=== PATIENT | female | born 1960 | race Caucasian/White ===

== ENCOUNTER 2018-09-28 21:56 | Emergency (ER) | payer OTHER ==
[2018-09-28 22:39] LABS: Hematocrit 42 % (35-47); Mean Corpuscular HGB Conc 33 g/dl (31-36); Mean Corpuscular Hemoglobin 30 pg (27-31); Mean Corpuscular Volume 91 fL (80-97); Mean Platelet Volume 8.5 fL (7.4-10.4); Platelet Count 236 10^3/ul (150-450); Red Blood Count 4.62 10^6/ul (4.00-5.40); Red Cell Distribution Width 14 % (10.5-15); White Blood Count 9.8 10^3/ul (3.5-10.8)
[2018-09-28 22:47] LABS: INR 1.02 (0.77-1.02)
[2018-09-28 22:55] LABS: EGFR Non-African American 98.2 (>60)
[2018-09-28 23:04] LABS: ABS Basophils 0 10^3/ul (0-0.2); ABS Eosinophils 2.1 10^3/ul (0-0.6); ABS Lymphocytes 2.3 10^3/ul (1.0-4.8); ABS Monocytes 0.4 10^3/ul (0-0.8); ABS Neutrophils 4.9 10^3/ul (1.5-7.7); ABS Nucleated RBC 0 10^3/ul; Eosinophil % 21.3 %; Lymphocyte % 23.4 %; Nucleated Red Blood Cells % 0.1
[2018-09-28] MEDS ORDERED: NS 0.9% 1000 ML* 1,000 ML IV ONE (23:18)
[2018-09-29] MEDS ORDERED: NS 0.9% 500 ML* 500 ML IV ONE (00:17)
[2018-09-29] MEDS ORDERED: Ondansetron ODT TAB* 4 MG PO ONE (01:32)
--- NOTE | 2018-09-29 02:44 | ED ---
Nausea/Vomiting/Diarrhea HPI - HPI Summary HPI Summary: Patient complains of several episodes of diarrhea 1 week with intermittent nausea and mid abdominal pain. Periods where there is no diarrhea, but worse often after eating. Denies history of travel, blood in stool, recent antibiotics, followed by diarrhea. Patient denies fever, cough, sore throat, CP , SOB, vomiting, change in urine, change in BM, vaginal symptoms. Speech patient states she has attempted [place] without improvement. Denies new supplements, medications, diet. States others have eaten the same food she has eaten. Medical history is none. - History of Current Complaint Chief Complaint: EDNauseaVomitDiarrh Stated Complaint: VOMITING/DIRRHEA Time Seen by Provider: 09/28/18 23:16 Hx Obtained From: Patient Onset/Duration: Gradual Onset Severity Initially: Moderate Severity Currently: Moderate Pain Intensity: 5 Pain Scale Used: 0-10 Numeric Location: Diffuse Character: Cramping Aggravating Factor(s): Food Alleviating Factor(s): Nothing Nausea/Vomiting Presence: Nauseated Diarrhea Presence: Yes Diarrhea Frequency: Every 15-60 minutes Diarrhea Characteristics: Watery - Allergies/Home Medications Allergies/Adverse Reactions: Allergies Allergy/AdvReac Type Severity Reaction Status Date / Time No Known Allergies Allergy Verified 09/28/18 23:39 PMH/Surg Hx/FS Hx/Imm Hx Endocrine/Hematology History: Denies: Hx Anticoagulant Therapy Cardiovascular History: Reports: Other Cardiovascular Problems/Disorders - hx palpitations Denies: Hx Cardiac Arrest History: Denies: Hx Dialysis Neurological History: Reports: Other Neuro Impairments/Disorders - hx dizziness Denies: Hx CVA Psychiatric History: Reports: Other Psychiatric Issues/Disorders - hx insomnia Denies: Hx Autism Infectious Disease History: No Infectious Disease History: Denies: Traveled Outside the [place] in Last 30 Days - Family History Known Family History: Positive: Other - breast cancer - Social History Occupation: Employed Full-time Alcohol Use: Occasionally Substance Use Type: Reports: None Smoking Status (MU): Never Smoked Tobacco Review of Systems Constitutional: Negative Eyes: Negative ENT: Negative Cardiovascular: Negative Respiratory: Negative Positive: Abdominal Pain, Diarrhea, Nausea Genitourinary: Negative Musculoskeletal: Negative Skin: Negative Neurological: Negative Psychological: Normal All Other Systems Reviewed And Are Negative: Yes Physical Exam - Summary Physical Exam Summary: Abdomen nontender to palpation currently. No active diarrhea or vomiting here in the ED. Triage Information Reviewed: Yes Vital Signs On Initial Exam: Initial Vitals Temp Pulse Resp BP Pulse Ox 98.2 F 89 22 142/92 100 09/28/18 21:58 09/28/18 21:58 09/28/18 21:58 09/28/18 21:58 09/28/18 21:58 Vital Signs Reviewed: Yes Appearance: Positive: Well-Appearing Skin: Positive: Warm Head/Face: Positive: Normal Head/Face Inspection Eyes: Positive: Normal ENT: Positive: Normal ENT inspection Neck: Positive: Supple Respiratory/Lung Sounds: Positive: Clear to Auscultation Cardiovascular: Positive: Normal Abdomen Description: Positive: Nontender Musculoskeletal: Positive: Normal Neurological: Positive: Normal Psychiatric: Positive: Normal AVPU Assessment: Alert - [place] Coma Scale Best Eye Response: 4 - Spontaneous Best Motor Response: 6 - Obeys Commands Best Verbal Response: 5 - Oriented Coma Scale Total: 15 Diagnostics - Vital Signs Vital Signs Temp Pulse Resp BP Pulse Ox 09/29/18 02:04 120/67 09/29/18 01:34 124/72 09/29/18 01:04 123/72 09/29/18 00:34 129/73 09/29/18 00:04 113/70 09/28/18 23:39 75 98 09/28/18 23:34 76 131/79 98 09/28/18 21:58 98.2 F 89 22 142/92 100 - Laboratory Lab Results: Lab Results 09/28/18 09/28/18 09/28/18 Range/Units 22:27 22:27 22:27 WBC 9.8 (3.5-10.8) 10^3/ul RBC 4.62 (4.00-5.40) 10^6/ul Hgb 14.0 (12.0-16.0) g/dl Hct 42 (35-47) % MCV 91 (80-97) fL MCH 30 (27-31) pg MCHC 33 (31-36) g/dl RDW 14 (10.5-15) % Plt Count 236 (150-450) 10^3/ul MPV 8.5 (7.4-10.4) fL Neut % (Auto) 50.5 % Lymph % (Auto) 23.4 % [place] % (Auto) 4.5 % Eos % (Auto) 21.3 % Baso % (Auto) 0.3 % Absolute Neuts (auto) 4.9 (1.5-7.7) 10^3/ul Absolute Lymphs (auto) 2.3 (1.0-4.8) 10^3/ul Absolute Monos (auto) 0.4 (0-0.8) 10^3/ul Absolute Eos (auto) 2.1 H (0-0.6) 10^3/ul Absolute Basos (auto) 0 (0-0.2) 10^3/ul Absolute Nucleated RBC 0 10^3/ul Nucleated RBC % 0.1 INR (Anticoag Therapy) 1.02 (0.77-1.02) APTT 30.6 (26.0-36.3) seconds Sodium 139 (135-145) mmol/L Potassium 3.7 (3.5-5.0) mmol/L Chloride 103 (101-111) mmol/L Carbon Dioxide 30 (22-32) mmol/L Anion Gap 6 (2-11) mmol/L BUN 7 (6-24) mg/dL Creatinine 0.62 (0.51-0.95) mg/dL Est GFR ( Amer) 118.8 (>60) Est GFR (Non-Af Amer) 98.2 (>60) BUN/Creatinine Ratio 11.3 (8-20) Glucose 103 H (70-100) mg/dL Lactic Acid (0.5-2.0) mmol/L Calcium 9.6 (8.6-10.3) mg/dL Total Bilirubin 0.30 (0.2-1.0) mg/dL AST 24 (13-39) U/L ALT 23 (7-52) U/L Alkaline Phosphatase 75 (34-104) U/L Troponin I 0.00 (<0.04) ng/mL Total Protein 7.0 (6.4-8.9) g/dL Albumin 4.2 (3.2-5.2) g/dL Globulin 2.8 (2-4) g/dL Albumin/Globulin Ratio 1.5 (1-3) Lipase 17 (11.0-82.0) U/L 11/29/18 Range/Units 22:27 WBC (3.5-10.8) 10^3/ul RBC (4.00-5.40) 10^6/ul Hgb (12.0-16.0) g/dl Hct (35-47) % MCV (80-97) fL MCH (27-31) pg MCHC (31-36) g/dl RDW (10.5-15) % Plt Count (150-450) 10^3/ul MPV (7.4-10.4) fL Neut % (Auto) % Lymph % (Auto) % [place] % (Auto) % Eos % (Auto) % Baso % (Auto) % Absolute Neuts (auto) (1.5-7.7) 10^3/ul Absolute Lymphs (auto) (1.0-4.8) 10^3/ul Absolute Monos (auto) (0-0.8) 10^3/ul Absolute Eos (auto) (0-0.6) 10^3/ul Absolute Basos (auto) (0-0.2) 10^3/ul Absolute Nucleated RBC 10^3/ul Nucleated RBC % INR (Anticoag Therapy) (0.77-1.02) APTT (26.0-36.3) seconds Sodium (135-145) mmol/L Potassium (3.5-5.0) mmol/L Chloride (101-111) mmol/L Carbon Dioxide (22-32) mmol/L Anion Gap (2-11) mmol/L BUN (6-24) mg/dL Creatinine (0.51-0.95) mg/dL Est GFR ( Amer) (>60) Est GFR (Non-Af Amer) (>60) BUN/Creatinine Ratio (8-20) Glucose (70-100) mg/dL Lactic Acid 0.8 (0.5-2.0) mmol/L Calcium (8.6-10.3) mg/dL Total Bilirubin (0.2-1.0) mg/dL AST (13-39) U/L ALT (7-52) U/L Alkaline Phosphatase (34-104) U/L Troponin I (<0.04) ng/mL Total Protein (6.4-8.9) g/dL Albumin (3.2-5.2) g/dL Globulin (2-4) g/dL Albumin/Globulin Ratio (1-3) Lipase (11.0-82.0) U/L Result Diagrams: 09/28/18 22:27 09/28/18 22:27 Lab Statement: Any lab studies that have been ordered have been reviewed, and results considered in the medical decision making process. Naus/Vom/Diarrhea Course/Dx - Course Course Of Treatment: Patient complains of several episodes of diarrhea 1 week with intermittent nausea and mid abdominal pain. Periods where there is no diarrhea, but worse often after eating. Denies history of travel, blood in stool, recent antibiotics, followed by diarrhea. Patient denies fever, cough, sore throat, CP, SOB, vomiting, change in urine, change in BM, vaginal symptoms. Speech patient states she has attempted [place] without improvement. Denies new supplements, medications, diet. States others have eaten the same food she has eaten. Medical history is none. Physical exam: Abdomen nontender to palpation currently. No active diarrhea or vomiting here in the ED. Vital signs within normal limits and stable. Labs unremarkable. No active vomiting or diarrhea here in the ED. Patient hydrated with 1.5 L. Advised to maintain hydration and electrolyte replacement with Gatorade. Advised patient Imodium would be appropriate if necessary, but probably preferable to let diarrhea run its course. Likely stomach virus - Differential Dx/Diagnosis Provider Diagnosis: Nausea vomiting and diarrhea Condition At Discharge: Stable Discharge - Sign-Out/Discharge Documenting (check all that apply): Patient Departure - Discharge Plan Condition: Stable Disposition: HOME Patient Education Materials: Acute Diarrhea (ED) Referrals: Mayra Funes MD [Primary Care Provider] - Billy Kirkpatrick DO [Doctor of Osteopathy] - Additional Instructions: Integument hydration and replace electrolytes with Gatorade. Use Imodium as directed, as needed Follow-up with GI Dr Kirkpatrick if symptoms persist. Return to the ED for any new or worsening symptoms. - Billing Disposition and Condition Condition: STABLE Disposition: Home
[2018-09-29 03:24] VITALS: BP 122/79
== END 2018-09-29 03:25 | disposition home or self-care (01) ==
LOC: ED 21:56
DX: R11.2 Nausea with vomiting, unspecified (principal); R19.7 Diarrhea, unspecified
CPT/HCPCS: 36415; 80053; 83605; 83690; 84484; 85025; 85610; 85730; 96360; 96361; 99284; A9270-GY

== ENCOUNTER 2019-08-19 16:20 | Emergency (ER) | payer OTHER ==
[2019-08-19 16:28] VITALS: BP 117/72
--- NOTE | 2019-08-19 17:51 | ED ---
Upper Extremity Pain - HPI Summary HPI Summary: Patient is a 59-year-old female who presents emergency department for injury to left fingertips. Patient states she asked him a close her second, third and fourth digits of left hand in a garage door. Symptoms are mild in severity. Associated symptoms of very small subungual hematomas. Touching areas makes symptoms worse. Rest makes symptoms better. - History of Current Complaint Chief Complaint: EDExtremityUpper Stated Complaint: LEFT HAND INJURY PER PT Time Seen by Provider: 08/19/19 16:53 Hx Obtained From: Patient - Allergies/Home Medications Allergies/Adverse Reactions: Allergies Allergy/AdvReac Type Severity Reaction Status Date / Time No Known Allergies Allergy Verified 09/28/18 23:39 PMH/Surg Hx/FS Hx/Imm Hx Previously Healthy: Yes Endocrine/Hematology History: Denies: Hx Anticoagulant Therapy Cardiovascular History: Reports: Other Cardiovascular Problems/Disorders - hx palpitations Denies: Hx Cardiac Arrest History: Denies: Hx Dialysis Neurological History: Reports: Other Neuro Impairments/Disorders - hx dizziness Denies: Hx CVA Psychiatric History: Reports: Other Psychiatric Issues/Disorders - hx insomnia Denies: Hx Autism Infectious Disease History: No Infectious Disease History: Denies: Traveled Outside the [place] in Last 30 Days - Family History Known Family History: Positive: Other - breast cancer - Social History Occupation: Employed Full-time Lives: With Family Alcohol Use: Occasionally Substance Use Type: Reports: None Smoking Status (MU): Never Smoked Tobacco Review of Systems Positive: Other - pain to left fingertips Positive: Bruising All Other Systems Reviewed And Are Negative: Yes Physical Exam Triage Information Reviewed: Yes Vital Signs On Initial Exam: Initial Vitals Temp Pulse Resp BP Pulse Ox 98.3 F 80 18 117/72 98 08/19/19 16:25 08/19/19 16:25 08/19/19 16:25 08/19/19 16:25 08/19/19 16:25 Vital Signs Reviewed: Yes Appearance: Positive: Well-Appearing - Patient sitting on chair in no acute distress. Skin: Positive: Warm, Dry Head/Face: Positive: Normal Head/Face Inspection Eyes: Positive: Normal, EOMI Neck: Positive: Supple Musculoskeletal: Positive: Normal, Strength/ROM Intact, Other - Full range of motion some digits of left hand. Noted to the mid second, third and fourth fingernails there are very small linear subungual hematomas, measuring at best a 10th of a centimeter in width. Neurological: Positive: Normal, CN Intact II-III Psychiatric: Positive: Affect/Mood Appropriate Procedures - Sedation Patient Received Moderate/Deep Sedation with Procedure: No Diagnostics - Vital Signs Vital Signs Temp Pulse Resp BP Pulse Ox 08/19/19 16:25 98.3 F 80 18 117/72 98 - Laboratory Lab Statement: Any lab studies that have been ordered have been reviewed, and results considered in the medical decision making process. Course/Dx - Course Assessment/Plan: Pt. with very small subungual hematomas after closing hand in garage door. Xray negative for fx or dislocation per radiology. Pt. inquiring about trephination of subungual hematomas. Advised patient hematomas are extremely small and would likely have 0 benefit from trephination. Advised ice and elevation, anti-inflammatories for pain as directed. Follow-up with PCP if needed. - Diagnoses Differential Diagnosis/HQI/PQRI: Positive: Contusion, Fracture (Closed), Hematoma Provider Diagnoses: Subungual hematoma Discharge ED - Sign-Out/Discharge Documenting (check all that apply): Patient Departure - Discharge Plan Condition: Good Disposition: HOME Patient Education Materials: Subungual Hematoma (ED) Referrals: Mayra Funes MD [Primary Care Provider] - Additional Instructions: Follow up with PCP if needed Ice and elevate intermittently Ibuprofen for pain as directed Return to ER if symptoms change or worsen - Billing Disposition and Condition Condition: GOOD Disposition: Home - Attestation Statements Provider Attestation: I was available for consult. This patient was seen by the JERSON. The patient was not presented to, seen by, or examined by me. Fito Burrell MD
== END 2019-08-19 18:09 | disposition home or self-care (01) ==
LOC: ED 16:20
DX: S60.122A Contusion of left index finger with damage to nail, initial encounter (principal); S60.132A Contusion of left middle finger with damage to nail, initial encounter; S60.142A Contusion of left ring finger with damage to nail, initial encounter; W23.0XXA Caught, crushed, jammed, or pinched between moving objects, initial encounter; Y92.008 Other place in unspecified non-institutional (private) residence as the place of occurrence of the external cause
CPT/HCPCS: 99281